=== PATIENT | female | born 1985 | race African-American/Black ===

== ENCOUNTER 2017-10-03 11:17 | Emergency (ER) | payer OTHER ==
[~2017-10-03] VITALS: Ht 165.1 cm; Wt 49.0 kg
[2017-10-03 11:23] VITALS: BP 106/77
== END 2017-10-03 12:03 | disposition home or self-care (01) ==
LOC: ER 11:18
DX: J06.9 Acute upper respiratory infection, unspecified (principal); F17.210 Nicotine dependence, cigarettes, uncomplicated; I49.9 Cardiac arrhythmia, unspecified
CPT/HCPCS: A4606; Z7610